=== PATIENT | female | born 1935 | race Caucasian/White ===

== ENCOUNTER 2018-09-17 08:01 | Emergency (ER) | payer MEDICARE, OTHER ==
--- NOTE | 2018-09-17 08:29 | EDM.PDOC ---
ED HPI GENERAL MEDICAL PROBLEM - General Chief Complaint: Upper Extremity Injury/Pain Stated Complaint: RT WRIST INJURY Time Seen by Provider: 09/17/18 08:12 Source of Information: Reports: Patient History Limitations: Reports: No Limitations - History of Present Illness INITIAL COMMENTS - FREE TEXT/NARRATIVE: The patient presents with right wrist pain. She got up from a chair and tripped and hurt her right wrist. She did not hit her head and she has no neck pain. She denies chest pain or shortness of breath. She has no abdominal pain , nausea or vomiting. She is right handed. She has edema and ecchymosis to the right wrist. Onset: Sudden Duration: Minutes: Location: Reports: Upper Extremity, Right (wrist) Quality: Reports: Sharp Severity: Moderate Improves with: Reports: Immobilization Worsens with: Reports: Movement Context: Reports: Trauma (She fell getting out of her chair) Associated Symptoms: Reports: No Other Symptoms Right Wrist Pain Score (Numeric/FACES): 2 - Related Data Allergies Allergy/AdvReac Type Severity Reaction Status Date / Time No Known Allergies Allergy Verified 09/17/18 08:15 Home Meds: Home Meds Aspirin 81 mg PO DAILY 09/17/18 [History] Blood Pressure Medication 09/17/18 [History] Levothyroxine 0 mcg PO DAILY 09/17/18 [History] traMADol [Ultram] 50 mg PO Q6H PRN #20 tab 09/17/18 [Rx] Past Medical History Cardiovascular History: Reports: Hypertension ANTI[employer]ER History: Reports: Endocrine/Metabolic History: Reports: Hypothyroidism Social & Family History - Tobacco Use Smoking Status *Q: Former Smoker Years of Tobacco use: 20 Used Tobacco, but Quit: Yes Month/Year Tobacco Last Used: 2018 - Caffeine Use Caffeine Use: Reports: Coffee - Recreational Drug Use Recreational Drug Use: No Review of Systems - Review of Systems Review Of Systems: See Below Constitutional: Reports: No Symptoms Eyes: Reports: No Symptoms Ears: Reports: No Symptoms Nose: Reports: No Symptoms Mouth/Throat: Reports: No Symptoms Respiratory: Reports: No Symptoms Cardiovascular: Reports: No Symptoms GI/Abdominal: Reports: No Symptoms Genitourinary: Reports: No Symptoms Musculoskeletal: Reports: Other (Right wrist pain and edema) ED EXAM, GENERAL - Physical Exam Exam: See Below Exam Limited By: No Limitations General Appearance: Alert, No Apparent Distress Ears: Normal External Exam Nose: Normal Inspection Head: Atraumatic, Normocephalic Neck: Normal Inspection Respiratory/Chest: No Respiratory Distress Extremities: Other (Edema and ecchymosis to the right wrist with pain upon palpation. Good sensation and pulses distally.) ED TRAUMA EXTREMITY PROCEDURES - Joint Reduction Site: Other (Right wrist fracture) Sedation: Hematoma/Fracture Block Local Anesthesia - Lidocaine (Xylocaine): 1% Plain Local Anesthetic Volume: 3cc Pre-Procedure NV Status: Normal Post-Procedure NV Status: Normal Technique: Other (Finger trap with manual manipulation) Number of Attempts: 1 Post-Reduction Imaging: Completely Reduced Joint Reduction Complications: No - Splinting Right Upper Extremity Splint Site: Right wrist Pre-Procedure NV Status: Normal Post-Procedure NV Status: Normal Splint Material: Fiberglass Splint Design: Sugar Tong Applied & Form Fitted By: Provider Provider Post-Splint Application NV Check: NV Status Normal, Good Position Complications: No Course - Vital Signs Last Recorded V/S: Last Vital Signs Temp 96.9 F 09/17/18 08:11 Pulse 65 09/17/18 08:11 Resp 18 09/17/18 08:11 BP 143/59 H 09/17/18 08:11 Pulse Ox 96 09/17/18 08:11 - Orders/Labs/Meds Orders: Active Orders 24 hr Category Date Time Status Peripheral IV Care [RC] . DIRECTED Care 09/17/18 08:45 Active Wrist 2V Rt [CR] Routine Exams 09/17/18 10:12 Ordered Lactated Ringers [Ringers, Lactated] 1,000 ml Med 09/17/18 09:00 Active IV ASDIRECTED Sodium Chloride 0.9% [Saline Flush] Med 09/17/18 08:45 Active 10 ml FLUSH ASDIRECTED PRN Peripheral IV Insertion Adult [OM.PC] Routine Oth 09/17/18 08:45 Ordered Medication Orders Lactated Ringer's (Ringers, Lactated) 1,000 mls @ 100 mls/hr IV ASDIRECTED CASH Last Admin: 09/17/18 09:11 Dose: 100 mls/hr Sodium Chloride (Saline Flush) 10 ml FLUSH ASDIRECTED PRN PRN Reason: Keep Vein Open Last Admin: 09/17/18 09:11 Dose: 10 ml Meds: Medications Generic Name Dose Route Start Last Admin Trade Name Freq PRN Reason Stop Dose Admin Lactated Ringer's 1,000 mls @ 100 mls/hr 09/17/18 09:00 09/17/18 09:11 Ringers, Lactated IV 100 mls/hr ASDIRECTED CASH Administration Sodium Chloride 10 ml 09/17/18 08:45 09/17/18 09:11 Saline Flush FLUSH 10 ml ASDIRECTED PRN Administration Keep Vein Open Discontinued Medications Generic Name Dose Route Start Last Admin Trade Name [place] PRN Reason Stop Dose Admin Hydromorphone HCl 0.5 mg 09/17/18 08:46 09/17/18 09:08 Dilaudid IVPUSH 09/17/18 08:47 0.5 mg ONETIME ONE Administration Lidocaine HCl Confirm 09/17/18 09:40 09/17/18 09:43 Xylocaine 1% Administered 09/17/18 09:41 Not Given Dose 10 ml .ROUTE .STK-MED ONE Lidocaine HCl 10 ml 09/17/18 09:44 09/17/18 09:44 Xylocaine 1% INJECT 09/17/18 09:45 10 ml ONETIME ONE Administration Lidocaine/Epinephrine 20 ml 09/17/18 08:46 09/17/18 09:43 Xylocaine 1% With Epinephrine 1:100,000 INJECT 09/17/18 08:47 Not Given ONETIME ONE - Re-Assessments/Exams Free Text/Narrative Re-Assessment/Exam: 09/17/18 08:28 I ordered an x-ray of her wrist. 09/17/18 10:18 The patient has a distal radius fracture. It is tilted dorsally and impacted slightly. I ordered an IV LR at 100ml/hr, dilaudid 0.5mg IV and I used lidocaine 1% to do a hematoma block to reduce the fracture. I obtained consent and there appears to be better alignment. I splinted her arm. I will give her something for pain and have her follow up with Dr Reid. Departure - Departure Time of Disposition: 10:20 Disposition: Home, Self-Care 01 Condition: Good Clinical Impression: Fracture of right distal radius Qualifiers: Encounter type: initial encounter Fracture type: closed Fracture morphology: other fracture Qualified Code(s): S52.591A - Other fractures of lower end of right radius, initial encounter for closed fracture - Discharge Information *PRESCRIPTION DRUG MONITORING PROGRAM REVIEWED*: No *COPY OF PRESCRIPTION DRUG MONITORING REPORT IN PATIENT HANS: No Prescriptions: traMADol [Ultram] 50 mg PO Q6H PRN #20 tab PRN Reason: Pain Referrals: PCP,Not In Area [Primary Care Provider] - Austin Reid MD [Physician] - 1 Week Forms: ED Department Discharge Additional Instructions: Ice your wrist for 15 minutes every other hour while awake for 2 days. Try to elevate your wrist above your heart as much as you can for 2 days. Take tylenol or motrin for pain. If that does not help, try tramadol 50mg every 6 hours as needed for pain. Follow up with Dr Reid. Please return if you are worse. - My Orders Last 24 Hours: My Active Orders 09/17/18 08:45 Peripheral IV Care [RC] . DIRECTED Sodium Chloride 0.9% [Saline Flush] 10 ml FLUSH ASDIRECTED PRN Peripheral IV Insertion Adult [OM.PC] Routine 09/17/18 09:00 Lactated Ringers [Ringers, Lactated] 1,000 ml IV ASDIRECTED 09/17/18 10:12 Wrist 2V Rt [CR] Routine - Assessment/Plan Last 24 Hours: My Active Orders 09/17/18 08:45 Peripheral IV Care [RC] . DIRECTED Sodium Chloride 0.9% [Saline Flush] 10 ml FLUSH ASDIRECTED PRN Peripheral IV Insertion Adult [OM.PC] Routine 09/17/18 09:00 Lactated Ringers [Ringers, Lactated] 1,000 ml IV ASDIRECTED 09/17/18 10:12 Wrist 2V Rt [CR] Routine
[2018-09-17] MEDS ORDERED: Sodium Chloride 0.9% 10 ML Syringe FLUSH PRN (08:45)
[2018-09-17] MEDS ORDERED: HYDROmorphone 1 MG/ML Syringe IVPUSH ONE (08:46)
--- NOTE | 2018-09-17 08:51 | CR ---
Right wrist: Four views of the right wrist were obtained. Comparison: No previous right wrist study. Slightly comminuted fracture is noted within the distal radius involving mostly the metaphysis. There is posterior impaction causing dorsal tilt of the distal radius as well as posterior displacement of the distal fragment. No additional fracture is seen. Incidental small cyst is noted within the capitate bone. Osteopenia is present. Soft tissue swelling is present. Impression: 1. Distal radial fracture as noted above. Other incidental findings. Diagnostic code #3
[2018-09-17] MEDS ORDERED: Lactated Ringers 1,000 ML IV SCH (09:00)
[2018-09-17] MEDS: Lidocaine 1% with EPINEPHrine 1:100,000 20 ML MDV INJECT ONE ×2 (09:11→09:43)
[2018-09-17] MEDS ORDERED: Lidocaine 1% 10 ML MDV ONE (09:40)
[2018-09-17] MEDS ORDERED: Lidocaine 1% 10 ML MDV INJECT ONE (09:44)
--- NOTE | 2018-09-17 12:23 | CR ---
Right wrist: Two views of the right wrist were obtained. Comparison: Prior right wrist study performed earlier on the same day (8:32 AM). Improved alignment of previous radial fracture is noted. Slight posterior displacement remains by about 6 mm. Osteoporosis is noted. Soft tissue swelling is seen. Impression: 1. Improved alignment with slight posterior displacement remaining. 2. Other incidental findings. Diagnostic code #2 MTDD
== END 2018-09-17 10:50 | disposition home or self-care (01) ==
LOC: JD.ED 08:01
DX: S52.591A Other fractures of lower end of right radius, initial encounter for closed fracture (principal); I10 Essential (primary) hypertension; E03.9 Hypothyroidism, unspecified; Z79.82 Long term (current) use of aspirin; Z79.899 Other long term (current) drug therapy; W18.40XA Slipping, tripping and stumbling without falling, unspecified, initial encounter; Z87.891 Personal history of nicotine dependence
CPT/HCPCS: 25605; 73100; 73110; 96361; 96374; 99284; J1170; J2001; J7120; 25505; 25565; 29125; 64450; 99283